=== PATIENT | female | born 1985 | race Caucasian/White ===

== ENCOUNTER 2022-08-24 16:46 | Outpatient (CLI) | payer BC, SELFPAY ==
--- NOTE | 2022-08-24 17:00 | CRLHL7_ITS ---
For Patients: As a result of the Century Cures Act, medical imaging exams and procedure reports are released immediately into your electronic medical record. You may view this report before your referring provider. If you have questions, please contact your health care provider. INDICATION: UTERINE PERFORATION COMPARISON: 12/02/2021 TECHNIQUE: 2D martinez scale and color Doppler images were acquired of the pelvis using a transabdominal and transvaginal approach. FINDINGS: Sonographic images demonstrate a normal size and smooth outer contour of the uterus. Uterus measures 9.2 cm in length by 3.7 cm in AP diameter by 4.9 cm in transverse dimension. The myometrium has a normal uniform echotexture. The endometrial lining appears normal and measures 10 mm in composite thickness. The right ovary measures 3.7 x 1.8 x 2.3 cm in size and the left ovary measures 3.3 x 2.3 x 2.3 cm. The ovaries demonstrate normal arterial and venous blood flow on color Doppler analysis. There are no suspicious fluid collections within the cul-de-sac. IMPRESSION: Normal pelvic ultrasound. Dictated by Fransico Jovel MD @ 08/26/2022 10:44:23 AM (Electronically Signed)
== END 2022-08-24 16:47 | disposition home or self-care (01) ==
PROVIDERS: PCP Family Medicine; Visit Provider Obstetrics & Gynecology
DX: S37.69XA Other injury of uterus, initial encounter (principal)
CPT/HCPCS: 76830; 76856

== ENCOUNTER 2022-08-29 13:55 | Outpatient (CLI) | payer BC, SELFPAY ==
--- NOTE | 2022-08-29 14:00 | US_ITS ---
Patient: ANGELLA SINGH Facility:?[facility] Patient ID:?[id number] Site Patient [id number]:?[id number]. Site :?[id number] Study:?US-Pelvis -08/24/2022 5:24:33 PM Ordering Physician:Kayden Montiel Final Report: INDICATION: UTERINE PERFORATION COMPARISON: 12/02/2021 TECHNIQUE: 2D martinez scale and color Doppler images were acquired of the pelvis using a transabdominal and transvaginal approach. FINDINGS: Sonographic images demonstrate a normal size and smooth outer contour of the uterus. Uterus measures 9.2 cm in length by 3.7 cm in AP diameter by 4.9 cm in transverse dimension. The myometrium has a normal uniform echotexture. The endometrial lining appears normal and measures 10 mm in composite thickness. The right ovary measures 3.7 x 1.8 x 2.3 cm in size and the left ovary measures 3.3 x 2.3 x 2.3 cm. The ovaries demonstrate normal arterial and venous blood flow on color Doppler analysis. There are no suspicious fluid collections within the cul-de-sac. IMPRESSION: Normal pelvic ultrasound. Dictated by Fransico Jovel MD @ 08/26/2022 10:44:23 AM Signed by:?Fransico Jovel MD @08/26/2022 10:44:23 AM (Electronic Signature)
== END 2022-08-29 13:56 | disposition home or self-care (01) ==
LOC: US 13:56
PROVIDERS: PCP Family Medicine; Visit Provider Obstetrics & Gynecology
DX: T83.39XA Other mechanical complication of intrauterine contraceptive device, initial encounter (principal)
CPT/HCPCS: 58300; 76857